=== PATIENT | male | born 1980 | race African-American/Black ===

== ENCOUNTER 2025-05-28 13:48 | Outpatient (CLI) | payer OTHER ==
[2025-05-28 14:22] LABS: #Basophils 0.03 10x3/uL (0.0-0.2); #Eosinophils 0.07 10x3/uL (0.0-0.5); #Monocytes 0.47 10x3/uL (0.0-1.1); #Neutrophils 5.19 10x3/uL (1.5-8.4); %Basophils 0.4 % (0.0-2.0); %Eosinophils 0.9 % (0.0-6.0); %Lymphocytes 23.3 % (18.0-47.0); %Monocytes 6.3 % (0.0-10.0); %Neutrophils 69.0 % (40.0-75.0); Hematocrit 41.0 % (38.8-50.0); Hemoglobin 14.2 g/dL (13.5-17.5); Mean Corpuscular Hemoglobin 28.0 pg (27.0-33.0); Mean Corpuscular Volume 80.7 fL (81.2-95.1); Platelet Count 228 10x3/uL (150-450); Red Blood Cell (RBC) Count 5.08 10x6/uL (4.32-5.72); White Blood Cell (WBC) Count 7.52 10x3/uL (3.5-10.5)
[2025-05-28 14:38] LABS: Anion Gap 9 mmol/L (10-20); BUN (Urea Nitrogen) 15 mg/dL (8.9-20.6); Calc. Creatinine Clearance 0 mL/min (70-130); Calcium 9.1 mg/dL (7.8-10.44); Carbon Dioxide 27 mmol/L (22-29); Chloride 108 mmol/L (98-107); Glucose 86 mg/dL (70-105); Potassium 3.8 mmol/L (3.5-5.1); Sodium 140 mmol/L (136-145)
== END 2025-05-28 13:49 | disposition home or self-care (01) ==
LOC: CSHLAB 13:48
PROVIDERS: ATTEND Specialist
DX: Z01.812 Encounter for preprocedural laboratory examination (principal); D17.1 Benign lipomatous neoplasm of skin and subcutaneous tissue of trunk
CPT/HCPCS: 80048; 85025

== ENCOUNTER 2025-05-31 11:15 | Day surgery (SDC) | payer OTHER ==
[2025-05-28 13:57] VITALS: BMI 27.3
[2025-05-31] MEDS ORDERED: Acetaminophen 500 MG TAB ONE (11:22)
[2025-05-31] MEDS ORDERED: Ketorolac Tromethamine 30 MG (1 mL) VIAL ONE (11:22)
[2025-05-31] MEDS ORDERED: PROPOFOL 20 ML ONE (11:31)
[2025-05-31] MEDS ORDERED: Rocuronium Bromide 10 MG/ML (10ML VIAL) ONE (11:31)
[2025-05-31] MEDS ORDERED: Ondansetron PF 4 MG/2 ML Vial ONE (11:31)
[2025-05-31] MEDS ORDERED: Bupivacaine/Epinephrine 0.25% 30 ML VIAL ONE (12:23)
[2025-05-31] MEDS ORDERED: SUGAMMADEX SODIUM 200 MG/2 ML VIAL ONE (13:46)
== END 2025-05-31 15:55 | disposition home or self-care (01) ==
LOC: CSHSDC 11:15
PROVIDERS: ATTEND Specialist
PROC: 0JB60ZZ Excision of Chest Subcutaneous Tissue and Fascia, Open Approach (ICD-10-PCS; principal; 2025-05-31)
DX: M79.9 Soft tissue disorder, unspecified (principal)
CPT/HCPCS: 88304; J1100; J1885; J2250; J2704; J3010